=== PATIENT | female | born 1990 | race African-American/Black ===

== ENCOUNTER 2022-03-03 12:48 | Emergency (ER) | payer OTHER ==
[~2022-03-03] VITALS: Ht 160 cm; Wt 73.0 kg
[2022-03-03 12:49] VITALS: BP 134/62
[2022-03-03] MEDS ORDERED: MAGNESIUM/ALUMINUM HYDROXIDE/SIMETHICONE 30ML UDC PO ONE (16:15)
[2022-03-03 16:22] LABS: HEMATOCRIT. 37.6 % (36.0-48.0); HEMOGLOBIN. 13.3 g/dL (12.0-16.0); MEAN CORPUSCULAR HEMOGLOBIN 35.2 pg (28.0-32.0); MEAN CORPUSCULAR VOLUME 100.1 fL (81.0-99.0); MEAN PLATELET VOLUME 7.6 fl (7.4-10.4); PLATELET 199 x1000/uL (130-400); RED BLOOD CELL COUNT 3.76 mill/uL (4.2-5.4); RED CELL DISTRIBUTION WIDTH 12.8 % (11.6-14.6)
[2022-03-03 16:27] LABS: CHLORIDE 106 mEq/L (98-107)
[2022-03-03 16:29] LABS: HCG SCREEN NEGATIVE
[2022-03-03] MEDS ORDERED: OMEP20TA15 MT (17:46)
[2022-03-03 22:33] LABS: PLATELET ESTIMATE NORMAL
== END 2022-03-03 18:04 | disposition home or self-care (01) ==
LOC: ER 12:48
DX: R07.89 Other chest pain (principal); K29.70 Gastritis, unspecified, without bleeding; J45.909 Unspecified asthma, uncomplicated
CPT/HCPCS: 36415; 71045; 80053; 83655; 84703; 85025; 93005; 99285